=== PATIENT | male | born 2000 | race Caucasian/White ===

== ENCOUNTER 2023-10-31 07:41 | Emergency (ER) | payer OTHER, SELFPAY ==
[2023-10-31 07:42] VITALS: BP 127/80
[2023-10-31 07:57] VITALS: BMI 24.2
--- NOTE | 2023-10-31 08:22 | ED.GENMED ---
History of Present Illness
General
Chief Complaint: Chest Pain
Source: patient
Exam Limitations: none
Time Seen by Provider: 10/31/23 08:07
Nursing documentation reviewed up to this point in time: agreed with
History of Present Illness
History of Present Illness:
23 yo male presents to the emergency department c/o left-sided chest wall pain. It began 3 to 4 weeks ago. He sneezed today, and it felt worse. He did not take any medication for the pain. He states he was out at a bar 3 to 4 weeks ago when the
pain came on. Is unclear if he fell.
Phy Exam
Physical Exam
Physical Exam:
Physical Exam
General: no apparent distress, not acutely ill
Neck: supple. no meningeal signs. normal posterior pharynx
Heart: s1/s2 regular rate and rhythm, no murmur. equal radial
pulses.
HEENT: Pupils equal round reactive to light, EOMI
Lungs: no acute respiratory distress. clear bilaterally, left-sided chest wall tender to palpation.
Abdomen: normal bowel sounds. not tender. no CVAT
Neuro: alert and oriented. no focal neurological deficits cranial nerves II through XII intact
Skin: no rash
Psychiatric: well kept. interactive and cooperative
Extremities: no edema. no calf tenderness. negative homans. good distal pulses
Scores
Heart Score for Chest Pain Patients
STEMI patient?: Not applicable
Course
Orders/Labs/Results
Orders:
Orders
10/31/23 07:58
Electrocardiogram (*1) Urgent
Reason for Study: Chest Pain
EKG- Treatment ONCE
CR Chest - 2 Views Urgent
Comment:
Reason For Exam: cp
10/31/23 08:25
Ketorolac [Toradol] 15 mg IM NOW STA
10/31/23 08:32
10/31/23 08:32
Vital Signs
Initial and Last Documented VS:
Initial Vital Signs
Temp Pulse Resp BP Pulse Ox
99.1 F 79 18 127/80 98
10/31/23 07:42 10/31/23 07:42 10/31/23 07:42 10/31/23 07:42 10/31/23 07:42
Last Documented Vital Signs
Temp Pulse Resp BP Pulse Ox
98.1 F 66 16 126/77 98
10/31/23 09:27 10/31/23 09:27 10/31/23 09:27 10/31/23 09:27 10/31/23 09:27
MDM/Problems Addressed
Differential Diagnosis Includes:
Pneumothorax, chest wall pain
MDM/Problems Addressed:
23-year-old male with left-sided chest wall pain, likely muscle strain. Do not suspect pneumothorax, ACS or PE.
*Radiology
Radiology exam reviewed: preliminary read by ED provider (cxr nad)
*Pulse Oximetry
Patient hypoxic: no
*EKG
Interpreted by ED Provider?: Yes
EKG Intrepretation Date: 10/31/23
EKG Intrepretation Time: 08:26
Interpretation: normal
Comparison EKG: no comparison EKG present
Heart Rate: 84
Rate: normal
Rhythm: sinus
[place]: normal axis
Interval: normal interval
QRS Pattern: normal QRS
Ischemia: no ischemia
*Critical Care Note
Total Time (30-74mins, 75-104mins- exclusive of procedures): Not Applicable
ED Attending Note
-
Portions of this chart may have been created with voice recognition software.� Occasional wrong word or��sound alike� substitutions may have occurred due to the inherent limitations of voice recognition software.
Discharge Plan
Departure
Patient Disposition: Home (Routine Discharge)
Date of Disposition: 10/31/23
Time of Disposition: :
Patient with high blood pressure during this ER visit?: Yes
Condition: Good
Discharge Problem:
Acute chest wall pain
Instructions: Chest Pain That Is Not Caused by the Heart (DC), BLOOD PRESSURE
Prescriptions:
No Action
No Current Medications
0
Referrals:
UNKNOWN - PT DOES,NOT KNOW [Family Provider] -
Activity Restrictions/Additional Instructions:
Follow up with primary care, return for any concerns.
Interventions
Interventions:
*Risk Screen - Suicide Last Done: 10/31/23 08:02
*General Assessment Last Done: 10/31/23 08:00
*Neglect/Abuse Screening Last Done: 10/31/23 08:01
ED- Fall Risk Assessment Last Done: 10/31/23 08:05
*ED COVID-19 Vaccine History Last Done: 10/31/23 08:00
*Nursing Disposition Last Done: 10/31/23 09:57
ED- Cardiac Assessment Last Done: 10/31/23 08:04
Discharge Date and Time
Discharge Date/Time: 10/31/23 09:58
Print Language: MALAYSIAN
[2023-10-31] MEDS: TORADOL 15 MG IM (08:48)
[2023-10-31 09:27] VITALS: BP 126/77
== END 2023-10-31 09:58 | disposition home or self-care (01) ==
LOC: EMR 07:41
PROVIDERS: EMERGENCY PHYSICIAN Emergency Medicine
DX: R07.89 Other chest pain (principal)
CPT/HCPCS: 96372; 99284; 71046; 93005